=== PATIENT | male | born 1945 | race African-American/Black ===

== ENCOUNTER 2016-10-03 05:49 | Emergency (ER) | payer MEDICARE, MEDICAID ==
[~2016-10-03] VITALS: Ht 195.6 cm; Wt 84.0 kg
[~2016-10-03 05:49] MED LIST: AMLO10TA80 PO; ASPI-1158 PO; CALC-198 PO; DOCU-150 PO; GEMF600T3 PO; MULT-1146 PO; OMEP20CA10 PO; TRAM50TA PO
[2016-10-03] MEDS ORDERED: KETOROLAC 60MG/2ML VIAL IM ONE (06:45)
[2016-10-03] MEDS ORDERED: MORPHINE SULFATE 10 MG/ML CPJ IM ONE (06:45)
[2016-10-03 07:34] VITALS: BP 154/91
== END 2016-10-03 10:19 | disposition home or self-care (01) ==
LOC: ER 05:49
DX: M25.562 Pain in left knee (principal); M25.561 Pain in right knee; M19.90 Unspecified osteoarthritis, unspecified site; M76.41 Tibial collateral bursitis [Pellegrini-Stieda], right leg; I10 Essential (primary) hypertension; Z79.82 Long term (current) use of aspirin; Z85.038 Personal history of other malignant neoplasm of large intestine; Z90.49 Acquired absence of other specified parts of digestive tract
CPT/HCPCS: 73562; 96372; 99284; J1885; J2270

== ENCOUNTER 2016-12-04 17:33 | Emergency (ER) | payer MEDICARE, MEDICAID ==
[~2016-12-04] VITALS: Ht 175.3 cm; Wt 79.0 kg
[2016-12-04 17:40] VITALS: BP 83/48
== END 2016-12-04 21:15 | disposition left against medical advice (07) ==
LOC: ER 18:35
DX: Z53.21 Procedure and treatment not carried out due to patient leaving prior to being seen by health care provider (principal)

== ENCOUNTER 2018-06-27 10:53 | Inpatient (IN) | payer MEDICARE, MEDICAID ==
[~2018-06-27] VITALS: Ht 195.6 cm; Wt 93.8 kg
[~2018-06-27 10:53] MED LIST changes: +AMI2 PO; -AMLO10TA80 PO; -ASPI-1158 PO; +ATOR10TA PO; -CALC-198 PO; -DOCU-150 PO; -GEMF600T3 PO; +LISI-186 PO; +METO-539 PO; -MULT-1146 PO; -OMEP20CA10 PO; -TRAM50TA PO
[2018-06-27 11:57] LABS: BASOPHILS % 0.7 % (0.0-2.0); EOSINOPHILS % 2.2 % (0.0-5.0); HEMATOCRIT. 35.1 % (42.0-52.0); HEMOGLOBIN. 11.9 g/dL (14.0-18.0); LYMPHOCYTES % 17.3 % (20.0-50.0); MEAN CORPUSCULAR HEMOGLOBIN 32.9 pg (28.0-32.0); MEAN CORPUSCULAR VOLUME 96.8 fL (80.0-94.0); MONOCYTES % 8.8 % (2.0-8.0); PLATELET 257 x1000/uL (130-400); RED BLOOD CELL COUNT 3.63 mill/uL (4.7-6.1); RED CELL DISTRIBUTION WIDTH 13.8 % (11.6-14.6)
[2018-06-27 12:04] LABS: CHLORIDE 109 mEq/L (98-107)
[2018-06-27 12:05] LABS: INR 1.1; PARTIAL THROMBOPLASTIN TIME 33.4 sec (23.4-31.0); PROTHROMBIN TIME 11.3 sec (9.6-11.0)
[2018-06-27 12:09] LABS: ETHANOL BLOOD < 10 mg/dL
[2018-06-27 12:16] LABS: CREATINE KINASE 135 IU/L (39-308); CREATINE KINASE MB FRACTION 1.8 ng/mL (0.5-3.6)
[2018-06-27 13:20] LABS: CLARITY URINE CLOUDY (CLEAR); COLOR URINE YELLOW (YELLOW); KETONES URINE NEGATIVE (NEGATIVE); LEUKOCYTE ESTERASE URINE 1+ (NEGATIVE); NITRITE URINE NEGATIVE (NEGATIVE); OCCULT BLOOD URINE NEGATIVE (NEGATIVE); PH URINE 6.5 (4.5-8.0); PROTEIN URINE NEGATIVE (NEGATIVE); UROBILINOGEN URINE 0.2 E.U./dL (0.2-1.0)
[2018-06-27 13:32] LABS: *AMPHETAMINES SCREEN URINE NEGATIVE (NEGATIVE); *BARBITURATES SCREEN URINE NEGATIVE (NEGATIVE); *BENZODIAZEPINES SCREEN URINE NEGATIVE (NEGATIVE); *COCAINE SCREEN URINE NEGATIVE (NEGATIVE); CANNABINOID URINE SCREEN NEGATIVE (NEGATIVE); METHADONE URINE SCREEN NEGATIVE (NEGATIVE); OPIATES URINE SCREEN NEGATIVE (NEGATIVE); PHENCYCLIDINE URINE SCREEN NEGATIVE (NEGATIVE)
[2018-06-27] MEDS ORDERED: CEFTRIAXONE 1 G PREMIX 50 ML IV ONE (13:45)
[2018-06-27 14:00] VITALS: BP 147/76
[2018-06-27] MEDS ORDERED: AMIODARONE HCL 200 MG TABLET PO SCH (14:30)
[2018-06-27] MEDS ORDERED: GUAIFENESIN 200MG/10ML SUGAR FREE UDC PO PRN (14:30)
[2018-06-27] MEDS ORDERED: NITROGLYCERIN 0.4MG TABLET SL SL PRN (14:30)
[2018-06-27] MEDS ORDERED: ONDANSETRON HCL 4MG/2ML INJ IV PRN (14:30)
[2018-06-27] MEDS ORDERED: IPRATROPIUM/ALBUTEROL 0.5-3(2.5)MG/3ML NEB INH PRN (14:30)
[2018-06-27] MEDS ORDERED: DOCUSATE SODIUM 100MG CAPSULE PO PRN (14:30)
[2018-06-27] MEDS ORDERED: ACETAMINOPHEN 325MG TABLET PO PRN (14:30)
[2018-06-27] MEDS ORDERED: CLONIDINE 0.1MG TABLET PO PRN (14:30)
[2018-06-27] MEDS ORDERED: TRAMADOL 50MG TABLET PO PRN (14:30)
[2018-06-27] MEDS ORDERED: MAGNESIUM/ALUMINUM HYDROXIDE/SIMETHICONE 30ML UDC PO PRN (14:30)
[2018-06-27 15:30] LABS: FOLIC ACID (FOLATE) SERUM 13.9 ng/mL (>5.38)
[2018-06-27 16:00] VITALS: BP 141/87
[2018-06-27] MEDS ORDERED: LEVOFLOXACIN 500MG PREMIX 100 ML IV NR (16:00)
[2018-06-27] MEDS: APIXABAN 5 MG TABLET PO SCH (16:54)
[2018-06-27] MEDS: ASPIRIN 81MG EC TABLET PO SCH (16:54)
[2018-06-27] MEDS: SODIUM CHLORIDE 0.9% 1,000 ML IV SCH (16:55)
[2018-06-27 17:45] LABS: *AMPHETAMINES SCREEN URINE NEGATIVE (NEGATIVE); *BARBITURATES SCREEN URINE NEGATIVE (NEGATIVE); *BENZODIAZEPINES SCREEN URINE NEGATIVE (NEGATIVE)
[2018-06-27 17:46] LABS: *COCAINE SCREEN URINE NEGATIVE (NEGATIVE); CANNABINOID URINE SCREEN NEGATIVE (NEGATIVE); METHADONE URINE SCREEN NEGATIVE (NEGATIVE); OPIATES URINE SCREEN NEGATIVE (NEGATIVE); PHENCYCLIDINE URINE SCREEN NEGATIVE (NEGATIVE)
[2018-06-27 20:27] VITALS: BP 121/67
[2018-06-27] MEDS ORDERED: ZOLPIDEM TARTRATE 5MG TABLET PO PRN (21:00)
[2018-06-27] MEDS ORDERED: METOPROLOL TARTRATE 25MG TABLET PO SCH (21:00)
[2018-06-27] MEDS: ATORVASTATIN CALCIUM 10MG TABLET PO SCH (21:48)
[2018-06-27] MEDS: ASCORBIC ACID 500 MG TABLET PO SCH (21:48)
[2018-06-27] MEDS: FAMOTIDINE 20MG TABLET PO SCH (21:49)
[2018-06-27] MEDS: METOPROLOL TARTRATE 50MG TABLET PO SCH (21:49)
[2018-06-28] VITALS: BP 149/83
[2018-06-28 04:00] VITALS: BP 130/72
[2018-06-28 06:12] LABS: EOSINOPHILS % 2.8 % (0.0-5.0); HEMATOCRIT. 32.2 % (42.0-52.0); HEMOGLOBIN. 10.8 g/dL (14.0-18.0); LYMPHOCYTES % 27.3 % (20.0-50.0); MEAN CORPUSCULAR HEMOGLOBIN 32.5 pg (28.0-32.0); MEAN CORPUSCULAR VOLUME 97.2 fL (80.0-94.0); MEAN PLATELET VOLUME 9.1 fl (7.4-10.4); MONOCYTES % 8.7 % (2.0-8.0); NEUTROPHILS % 60.2 % (40.0-76.0); PLATELET 245 x1000/uL (130-400); RED BLOOD CELL COUNT 3.32 mill/uL (4.7-6.1)
[2018-06-28 06:17] LABS: CHLORIDE 111 mEq/L (98-107)
[2018-06-28] MEDS: APIXABAN 5 MG TABLET PO SCH ×2 (06:29→17:24)
[2018-06-28 06:30] LABS: LDL CHOLESTEROL 53 mg/dL (5-100)
[2018-06-28 06:31] LABS: CREATINE KINASE 147 IU/L (39-308); CREATINE KINASE MB FRACTION 1.7 ng/mL (0.5-3.6); HDL CHOLESTEROL 23 mg/dL (40-59)
[2018-06-28 08:00] VITALS: BP 125/76
[2018-06-28] MEDS: METOPROLOL TARTRATE 50MG TABLET PO SCH ×2 (08:50→21:58)
[2018-06-28] MEDS: ASCORBIC ACID 500 MG TABLET PO SCH ×2 (08:50→21:58)
[2018-06-28] MEDS: ASPIRIN 81MG EC TABLET PO SCH (08:50)
[2018-06-28] MEDS: ZINC SULFATE 220 MG ( 50 ) CAPSULE PO SCH (08:57)
[2018-06-28] MEDS: SODIUM CHLORIDE 0.9% 1,000 ML IV SCH (10:07)
[2018-06-28] MEDS: AMIODARONE HCL 200 MG TABLET PO SCH ×2 (10:30→17:24)
[2018-06-28] MEDS ORDERED: REGADENOSON 0.4 MG/5 ML IV NR (10:45)
[2018-06-28] MEDS: CEFTRIAXONE 1 G PREMIX 50 ML IV SCH (11:58)
[2018-06-28 12:00] VITALS: BP_SYST 104; BP_SYST 142; BP_SYST 79; BP_DIAS 47; BP_DIAS 58; BP_DIAS 79
[2018-06-28] MEDS: LEVOFLOXACIN 250MG PREMIX 50 ML IV SCH ×2 (12:00→18:51)
[2018-06-28] MEDS ORDERED: REGADENOSON 0.4 MG/5 ML IV ONE (13:51)
[2018-06-28 16:00] VITALS: BP 140/75
[2018-06-28 20:00] VITALS: BP 146/83
[2018-06-28] MEDS: FAMOTIDINE 20MG TABLET PO SCH (21:58)
[2018-06-28] MEDS: ATORVASTATIN CALCIUM 10MG TABLET PO SCH (21:58)
[2018-06-28] MEDS ORDERED: SODIUM CHLORIDE 0.9% 1,000 ML IV SCH (23:00)
[2018-06-29] VITALS: BP_SYST 138; BP_SYST 94; BP_DIAS 52; BP_DIAS 83
[2018-06-29 04:00] VITALS: BP 136/76
[2018-06-29] MEDS: APIXABAN 5 MG TABLET PO SCH ×2 (06:09→17:00)
[2018-06-29 07:06] LABS: BASOPHILS % 0.9 % (0.0-2.0); EOSINOPHILS % 3.4 % (0.0-5.0); HEMATOCRIT. 34.1 % (42.0-52.0); HEMOGLOBIN. 11.4 g/dL (14.0-18.0); LYMPHOCYTES % 20.7 % (20.0-50.0); MEAN CORPUSCULAR HEMOGLOBIN 32.4 pg (28.0-32.0); MEAN CORPUSCULAR VOLUME 97.3 fL (80.0-94.0); MEAN PLATELET VOLUME 9.2 fl (7.4-10.4); MONOCYTES % 9.2 % (2.0-8.0); NEUTROPHILS % 65.8 % (40.0-76.0); PLATELET 239 x1000/uL (130-400); RED BLOOD CELL COUNT 3.51 mill/uL (4.7-6.1); RED CELL DISTRIBUTION WIDTH 13.7 % (11.6-14.6)
[2018-06-29 07:26] LABS: CHLORIDE 112 mEq/L (98-107)
[2018-06-29 07:40] LABS: PHOSPHORUS 3.9 mg/dL (2.5-4.9)
[2018-06-29 08:00] VITALS: BP_SYST 100; BP_SYST 149; BP_SYST 80; BP_DIAS 37; BP_DIAS 62; BP_DIAS 81
[2018-06-29] MEDS: ZINC SULFATE 220 MG ( 50 ) CAPSULE PO SCH (08:46)
[2018-06-29] MEDS: AMIODARONE HCL 200 MG TABLET PO SCH ×2 (08:46→17:00)
[2018-06-29] MEDS: ASCORBIC ACID 500 MG TABLET PO SCH ×2 (08:46→20:28)
[2018-06-29] MEDS: METOPROLOL TARTRATE 50MG TABLET PO SCH ×2 (08:47→20:28)
[2018-06-29] MEDS: ASPIRIN 81MG EC TABLET PO SCH (08:47)
[2018-06-29] MEDS: FLUDROCORTISONE ACETATE 0.1MG TABLET PO SCH (10:22)
[2018-06-29] MEDS: SODIUM CHLORIDE 0.45% 1,000 ML IV SCH (10:23)
[2018-06-29 12:00] VITALS: BP_SYST 110; BP_SYST 146; BP_SYST 95; BP_DIAS 45; BP_DIAS 70; BP_DIAS 73
[2018-06-29] MEDS: LEVOFLOXACIN 250MG PREMIX 50 ML IV SCH (13:05)
[2018-06-29] MEDS: CEFTRIAXONE 1 G PREMIX 50 ML IV SCH (14:04)
[2018-06-29 16:00] VITALS: BP 144/71
[2018-06-29 20:00] VITALS: BP 116/63
[2018-06-29] MEDS: FAMOTIDINE 20MG TABLET PO SCH (20:28)
[2018-06-29] MEDS: ATORVASTATIN CALCIUM 10MG TABLET PO SCH (20:28)
[2018-06-30] VITALS: BP 114/68
[2018-06-30] MEDS: SODIUM CHLORIDE 0.45% 1,000 ML IV SCH ×3 (03:02→21:28)
[2018-06-30 04:00] VITALS: BP 152/83
[2018-06-30 05:43] LABS: BASOPHILS % 1.1 % (0.0-2.0); EOSINOPHILS % 3.2 % (0.0-5.0); HEMATOCRIT. 32.5 % (42.0-52.0); HEMOGLOBIN. 10.9 g/dL (14.0-18.0); LYMPHOCYTES % 26.4 % (20.0-50.0); MEAN CORPUSCULAR HEMOGLOBIN 32.7 pg (28.0-32.0); MEAN CORPUSCULAR VOLUME 97.5 fL (80.0-94.0); MEAN PLATELET VOLUME 8.7 fl (7.4-10.4); NEUTROPHILS % 60.3 % (40.0-76.0); PLATELET 249 x1000/uL (130-400); RED BLOOD CELL COUNT 3.34 mill/uL (4.7-6.1); RED CELL DISTRIBUTION WIDTH 13.5 % (11.6-14.6)
[2018-06-30] MEDS: APIXABAN 5 MG TABLET PO SCH ×2 (05:46→17:41)
[2018-06-30 07:47] LABS: PHOSPHORUS 4.1 mg/dL (2.5-4.9)
[2018-06-30 08:00] VITALS: BP_SYST 103; BP_SYST 104; BP_SYST 164; BP_SYST 80; BP_DIAS 52; BP_DIAS 62; BP_DIAS 76
[2018-06-30] MEDS: ZINC SULFATE 220 MG ( 50 ) CAPSULE PO SCH (08:55)
[2018-06-30] MEDS: ASCORBIC ACID 500 MG TABLET PO SCH ×2 (08:56→21:28)
[2018-06-30] MEDS: AMIODARONE HCL 200 MG TABLET PO SCH ×2 (08:56→17:41)
[2018-06-30] MEDS: ASPIRIN 81MG EC TABLET PO SCH (08:56)
[2018-06-30] MEDS: FLUDROCORTISONE ACETATE 0.1MG TABLET PO SCH (08:56)
[2018-06-30] MEDS: METOPROLOL TARTRATE 50MG TABLET PO SCH ×2 (08:57→21:29)
[2018-06-30] MEDS: LEVOFLOXACIN 250MG PREMIX 50 ML IV SCH (11:20)
[2018-06-30 12:00] VITALS: BP_SYST 155; BP_SYST 71; BP_SYST 98; BP_DIAS 37; BP_DIAS 63; BP_DIAS 79
[2018-06-30] MEDS: CEFTRIAXONE 1 G PREMIX 50 ML IV SCH (12:34)
[2018-06-30 16:00] VITALS: BP_SYST 113; BP_SYST 71; BP_SYST 99; BP_DIAS 36; BP_DIAS 65
[2018-06-30 20:00] VITALS: BP_SYST 127; BP_SYST 82; BP_SYST 91; BP_DIAS 48; BP_DIAS 64; BP_DIAS 71
[2018-06-30] MEDS: ATORVASTATIN CALCIUM 10MG TABLET PO SCH (21:28)
[2018-06-30] MEDS: FAMOTIDINE 20MG TABLET PO SCH (21:28)
[2018-07-01] VITALS: BP 149/71
[2018-07-01 04:00] VITALS: BP 143/82
[2018-07-01] MEDS: APIXABAN 5 MG TABLET PO SCH ×2 (06:15→18:00)
[2018-07-01] MEDS: SODIUM CHLORIDE 0.45% 1,000 ML IV SCH (06:16)
[2018-07-01 06:48] LABS: EOSINOPHILS % 2.5 % (0.0-5.0); HEMATOCRIT. 33.2 % (42.0-52.0); HEMOGLOBIN. 11.2 g/dL (14.0-18.0); MEAN CORPUSCULAR HEMOGLOBIN 32.8 pg (28.0-32.0); MEAN CORPUSCULAR VOLUME 97.4 fL (80.0-94.0); MEAN PLATELET VOLUME 9.2 fl (7.4-10.4); MONOCYTES % 7.6 % (2.0-8.0); NEUTROPHILS % 62.9 % (40.0-76.0); PLATELET 227 x1000/uL (130-400); RED BLOOD CELL COUNT 3.41 mill/uL (4.7-6.1); RED CELL DISTRIBUTION WIDTH 13.9 % (11.6-14.6)
[2018-07-01 07:24] LABS: PHOSPHORUS 4.2 mg/dL (2.5-4.9)
[2018-07-01 08:00] VITALS: BP_SYST 167; BP_SYST 84; BP_SYST 90; BP_DIAS 54; BP_DIAS 56; BP_DIAS 89
[2018-07-01] MEDS: ASCORBIC ACID 500 MG TABLET PO SCH (08:29)
[2018-07-01] MEDS: ZINC SULFATE 220 MG ( 50 ) CAPSULE PO SCH (08:29)
[2018-07-01] MEDS: ASPIRIN 81MG EC TABLET PO SCH (08:29)
[2018-07-01] MEDS: METOPROLOL TARTRATE 50MG TABLET PO SCH (08:30)
[2018-07-01] MEDS ORDERED: FLUDROCORTISONE ACETATE 0.1MG TABLET PO SCH (09:00)
[2018-07-01] MEDS: AMIODARONE HCL 200 MG TABLET PO SCH ×2 (09:34→17:00)
[2018-07-01 12:00] VITALS: BP 140/75
[2018-07-01] MEDS: LEVOFLOXACIN 250MG PREMIX 50 ML IV SCH (12:18)
[2018-07-01] MEDS: CEFTRIAXONE 1 G PREMIX 50 ML IV SCH (12:18)
[2018-07-01 16:00] VITALS: BP 132/71
[2018-07-01 16:03] VITALS: BP 132/71
[2018-07-02] MEDS ORDERED: LEVOFLOXACIN 250MG TABLET PO SCH (11:00)
== END 2018-07-01 20:45 | disposition home or self-care (01) | DRG 74 ==
LOC: ER 10:53 → EDBEDREQ 11:42 → 7WST 12:18 → EDBEDREQ 12:20 → EDBEDREQTM 12:20 → EDBEDREQ 12:52 → EDBEDREQSVC 12:52 → ENRESERV 13:04 → SUPCPDRO 14:07
PROVIDERS: ADMIT Internal Medicine; ATTEND Internal Medicine
DX: G90.8 Other disorders of autonomic nervous system (principal); E44.1 Mild protein-calorie malnutrition; N39.0 Urinary tract infection, site not specified; N17.9 Acute kidney failure, unspecified; B96.89 Other specified bacterial agents as the cause of diseases classified elsewhere; I95.1 Orthostatic hypotension; D64.9 Anemia, unspecified; E78.00 Pure hypercholesterolemia, unspecified; E78.5 Hyperlipidemia, unspecified; I12.9 Hypertensive chronic kidney disease with stage 1 through stage 4 chronic kidney disease, or unspecified chronic kidney disease; N18.3 Chronic kidney disease, stage 3 (moderate); R26.9 Unspecified abnormalities of gait and mobility; I44.0 Atrioventricular block, first degree; I48.0 Paroxysmal atrial fibrillation; I69.320 Aphasia following cerebral infarction; I69.322 Dysarthria following cerebral infarction; Z79.899 Other long term (current) drug therapy; Z82.49 Family history of ischemic heart disease and other diseases of the circulatory system; Z85.048 Personal history of other malignant neoplasm of rectum, rectosigmoid junction, and anus; Z93.3 Colostomy status; Z68.24 Body mass index [BMI] 24.0-24.9, adult
CPT/HCPCS: 36415; 71045; 76770; 78452; 80048; 80061; 80305; 80320; 82550; 82553; 82607; 82746; 83036; 83540; 83550; 83605; 83735; 83880; 84100; 84443; 84484; 85379; 87077; 87186; 93005; 93017; 93306; 93880; 93970; 96374; 97110; 97162; 99285; A9500; J0696; J1956; J2785; J7030; J7050; G0480